=== PATIENT | female | born 1980 | race African-American/Black ===

== ENCOUNTER 2018-03-06 05:44 | Emergency (ER) | payer MEDICAID ==
[~2018-03-06] VITALS: Ht 149.9 cm; Wt 61.6 kg
[~2018-03-06 05:44] MED LIST: AMLO10TA6 PO; DICY20TA3 PO; LISI-170 PO
[2018-03-06] MEDS ORDERED: MECLIZINE CHEWABLE 25 MG TAB PO ONE (06:30)
[2018-03-06] MEDS ORDERED: MECLIZINE CHEWABLE 25 MG TAB ONE (06:32)
[2018-03-06 08:57] VITALS: BP 136/56
== END 2018-03-06 09:09 | disposition home or self-care (01) ==
LOC: ED 09:03
DX: S93.402A Sprain of unspecified ligament of left ankle, initial encounter (principal); R51 Headache; R11.0 Nausea; G89.29 Other chronic pain; H81.10 Benign paroxysmal vertigo, unspecified ear; I10 Essential (primary) hypertension; X50.1XXA Overexertion from prolonged static or awkward postures, initial encounter; Y93.89 Activity, other specified; Y92.89 Other specified places as the place of occurrence of the external cause; Y99.8 Other external cause status
CPT/HCPCS: 99283

== ENCOUNTER 2018-03-12 01:20 | Emergency (ER) | payer MEDICAID ==
[~2018-03-12] VITALS: Ht 149.9 cm; Wt 62.5 kg
[2018-03-12 01:24] VITALS: BP 178/112
[2018-03-12] MEDS ORDERED: SULFAMETH./TRIMETHOPRIM DS 800MG/160MG TABLET ONE (01:44)
[2018-03-12] MEDS ORDERED: LORazepam 1MG TABLET ONE (01:45)
[2018-03-12] MEDS ORDERED: SULFAMETH./TRIMETHOPRIM DS 800MG/160MG TABLET PO ONE (02:00)
[2018-03-12] MEDS ORDERED: LORazepam 1MG TABLET PO ONE (02:00)
== END 2018-03-12 02:30 | disposition home or self-care (01) ==
LOC: ED 02:13
DX: G89.29 Other chronic pain (principal); J06.9 Acute upper respiratory infection, unspecified; N39.0 Urinary tract infection, site not specified; R51 Headache; K21.9 Gastro-esophageal reflux disease without esophagitis; I10 Essential (primary) hypertension
CPT/HCPCS: 71045; 99283